=== PATIENT | male | born 1945 | race Two or more races ===

== ENCOUNTER 2017-06-17 07:31 | Emergency (ER) | payer OTHER, MEDICAID ==
[~2017-06-17 07:31] MED LIST: GABA100C9 PO; GABA300C; GLIP-116 PO; GLUCOTROL; IBUP800T24 PO; INSLANTI SC; LORANTIDINE; METF-370 PO; NOVALOG; PRAV20TA3 PO; PRAVASTATIN; PROVACHOL; SITA100T7 PO; TAMS0.4C36 PO; TRAM50TA2 PO; VALS40TA2 PO; aspirin; diovan; flomax
[2017-06-17 08:46] VITALS: BP 119/70
== END 2017-06-17 09:12 | disposition home or self-care (01) ==
LOC: ER 07:35
DX: J20.9 Acute bronchitis, unspecified (principal); E11.9 Type 2 diabetes mellitus without complications; E78.5 Hyperlipidemia, unspecified; I10 Essential (primary) hypertension
CPT/HCPCS: 71020

== ENCOUNTER 2018-12-16 13:03 | Emergency (ER) | payer OTHER, MEDICAID ==
[~2018-12-16] VITALS: Ht 182.9 cm; Wt 77.1 kg
[2018-12-16] MEDS ORDERED: SODIUM CHLORIDE 0.9% 1,000 ML IV ONE (13:41)
[2018-12-16 13:57] LABS: Basophils # (auto) 0 uL; Basophils % (auto) 0.3 % (0.0-2.0); Eosinophils # (auto) 0 uL; Eosinophils % (auto) 0.1 % (0.0-7.0); Hematocrit 36.1 % (41.0-53.0); Hemoglobin 12.3 g/dL (13.5-17.5); Lymphocytes # (auto) 0.9 uL; Lymphocytes % (auto) 6.8 % (10.0-50.0); Mean Corpuscular Hemoglobin 31.3 pg (28.0-32.0); Mean Corpuscular Hgb Conc. 34.2 g/dL (32.0-36.0); Mean Corpuscular Volume 91.4 fL (80.0-100.0); Monocytes % (auto) 8.1 % (0.0-12.0); Neutrophils # (auto) 10.8 uL; Neutrophils % (auto) 84.7 % (37.0-80.0); Platelet Count (auto) 213 10^3/uL (140-450); Red Blood Cells 3.95 10^6/uL (4.5-5.90); Red Cell Distribution Width 13.7 % (11.8-14.3); White Blood Cell 12.8 10^3/uL (4.4-10.8)
[2018-12-16 14:12] LABS: Alanine Aminotransferase 15 U/L (16-61); Albumin 3.1 g/dL (3.4-5.0); Anion Gap 8 (5-15); Aspartate Aminotransferase 8 U/L (15-37); BUN/Creatinine Ratio 17.2; Blood Urea Nitrogen 21 mg/dL (7-18); Calcium 8.3 mg/dL (8.5-10.1); Carbon Dioxide 27 mmol/L (21-32); Chloride 99 mmol/L (98-107); GFR African American 75 mL/min; GFR Non-African American 62 mL/min; Glucose 254 mg/dL (74-106); Potassium 4.3 mmol/L (3.5-5.1); Sodium 134 mmol/L (136-145)
[2018-12-16 14:17] LABS: Alkaline Phosphatase 82 U/L (45-117); Bilirubin, Total 1.3 mg/dL (0.2-1.0); Total Protein 7.5 g/dL (6.4-8.2)
[2018-12-16] MEDS ORDERED: cefTRIAXone 1GM/50ML D5W 50 ML IV ONE (15:00)
[2018-12-16 15:30] VITALS: BP 141/66
== END 2018-12-16 16:53 | disposition home or self-care (01) ==
LOC: ER 13:09
DX: J20.9 Acute bronchitis, unspecified (principal); E11.65 Type 2 diabetes mellitus with hyperglycemia; Z79.4 Long term (current) use of insulin; Z79.899 Other long term (current) drug therapy
CPT/HCPCS: 36415; 71046; 80053; 84484; 85025; 93005; 96361; 96365; 99284; J0696; J7030